=== PATIENT | female | born 1955 | race Two or more races ===

== ENCOUNTER 2023-04-10 06:56 | Day surgery (SDC) | payer OTHER ==
[2023-04-10] VITALS (7 sets, daily range): BP systolic 138–161; BP diastolic 71–87; PULSE 74–80; RESP 13–23; O2SAT 90–97
[~2023-04-10] VITALS: Ht 167.6 cm; Wt 86.2 kg
[~2023-04-10 06:56] MED LIST: ALBU108A14 IN; AMLO1TAB21 PO; ATOR40TA52 PO; BACL20TA PO; BUDE1AER4 IN; BUPR300T43 PO; CERTKIT SC; CHOL20007 PO; FOLI-119 PO; LORA-483 PO; LOSA50TA46 PO; LUBI24CA12 PO; MEMA1TAB3 PO; METH2.5T PO; METO25TA5 PO; ONDA-155 PO; OXY20CRT PO; PREG50CA PO; SULF500T57 PO
[2023-04-10] MEDS ORDERED: IODIXANOL 320MG/ML 100ML BTL IV ONE (09:17)
[2023-04-10] MEDS ORDERED: LIDOCAINE 2%HCL (LOCAL ANESTH.) INJ 20ML MDV ONE (09:17)
[2023-04-10] MEDS ORDERED: ANGIOMAX 250 MG VIAL IV ONE (09:19)
[2023-04-10] MEDS ORDERED: VERAPAMIL 2.5MG/ML INJ 2ML VIAL IV ONE (09:19)
[2023-04-10] MEDS ORDERED: HEPARIN SODIUM (PORCINE) 5000 UNITS/ML 1ML VIAL ONE ×2 (09:19→09:52)
[2023-04-10] MEDS ORDERED: fentaNYL CITRATE 100 MCG/2 ML VL ONE (09:19)
[2023-04-10] MEDS ORDERED: MIDAZOLAM HCL 2MG/2ML 2ml VIAL (1mg/ml) ONE (09:20)
[2023-04-10] MEDS ORDERED: SODIUM CHL 0.9% 0 ML ONE (09:20)
[2023-04-10] MEDS ORDERED: ONDANSETRON HCL 4 MG/2 ML VIAL ONE (09:22)
== END 2023-04-10 12:00 | disposition home or self-care (01) ==
LOC: CATH 06:56
PROVIDERS: ATTEND Internal Medicine Cardiovascular Disease
DX: I25.10 Atherosclerotic heart disease of native coronary artery without angina pectoris (principal); I10 Essential (primary) hypertension; J44.9 Chronic obstructive pulmonary disease, unspecified; E78.5 Hyperlipidemia, unspecified; M06.9 Rheumatoid arthritis, unspecified; I47.1 Supraventricular tachycardia; Z79.899 Other long term (current) drug therapy
CPT/HCPCS: 93458; 93571; C1725; C1769; C1894; J1644; J2250; J2405; J3010; J7030; Q9967; 99152; 99153

== ENCOUNTER 2023-10-18 08:22 | Inpatient (IN) | payer OTHER ==
[~2023-10-18] VITALS: Ht 167.6 cm; Wt 89.2 kg
[~2023-10-18 08:22] MED LIST changes: +ASPI1TAB20 PO; +ATOR20TA50 PO; -ATOR40TA52 PO; +BUSP15TA90 PO; +CAR3125T OR; -LORA-483 PO; +MAGN400C3 PO; -MEMA1TAB3 PO; -METO25TA5 PO; -OXY20CRT PO; +OXYC15TA48 PO; -PREG50CA PO
[2023-10-18] MEDS: TRANEXAMIC ACID 10 ML ONE ×2 (11:25→11:44)
[2023-10-18] MEDS ORDERED: LIDOCAINE 1% INJ PF 5ML AMP ONE (11:37)
[2023-10-18] MEDS: LIDOCAINE W/ EPINEPHRINE 1% 20ML VIAL ONE (11:44)
[2023-10-18] MEDS ORDERED: MIDAZOLAM HCL 2MG/2ML 2ml VIAL (1mg/ml) ONE (12:03)
[2023-10-18] MEDS ORDERED: fentaNYL CITRATE 100 MCG/2 ML VL ONE (12:03)
[2023-10-18] MEDS ORDERED: HYDROmorphone HCL 2 MG/ML VL/or syr ONE (12:03)
[2023-10-18] MEDS: ceFAZolin 2 GM/D5W100ml 100 ML IV ONE (12:04)
[2023-10-18] MEDS ORDERED: MIDAZOLAM HCL 2MG/2ML 2ml VIAL (1mg/ml) IV PRN (13:30)
[2023-10-18] MEDS ORDERED: MORPHINE SULFATE 4 MG/ML SYR/VIAL IV PRN (13:30)
[2023-10-18] MEDS ORDERED: LABETALOL HCL 5 MG/ML 4ML SYRINGE IV PRN (13:30)
[2023-10-18] MEDS ORDERED: ONDANSETRON HCL 4 MG/2 ML VIAL IV PRN (13:30)
[2023-10-18] MEDS ORDERED: HYDROmorphone HCL 2 MG/ML VL/or syr IV PRN (13:30)
[2023-10-18] MEDS ORDERED: ePHEDrine SULFATE 50 MG/ML AMP IV PRN (13:30)
[2023-10-18] MEDS ORDERED: DexAMETHasone SOD PHOS 10MG/1ML VIAL INJ ONE (13:32)
[2023-10-18] MEDS: SUCCINYLCHOLINE CHLORIDE 20 MG/ML 10ML VIAL IV ONE (14:01)
[2023-10-18] MEDS ORDERED: PROPOFOL 10 MG/ML 20 ML IV ONE (14:08)
[2023-10-18] MEDS ORDERED: ACETAMINOPHEN 325 MG TAB PO PRN (15:00)
[2023-10-18] MEDS: ceFAZolin 1GM/50ML 50 ML IV SCH (15:00)
[2023-10-18] MEDS ORDERED: NITROGLYCERIN 0.4 MG SL TAB SL PRN (15:00)
[2023-10-18] MEDS ORDERED: MORPHINE SULFATE INJ 2 MG/ml SYRG IV PRN (15:00)
[2023-10-18 15:34] VITALS: PULSE 83; RESP 15; O2SAT 99
[2023-10-18] MEDS: CYCLOBENZAPRINE HCL 10 MG TAB ONE (15:48)
[2023-10-18] MEDS: CYCLOBENZAPRINE HCL 10 MG TAB PO ONE (15:55)
[2023-10-18] MEDS: D5W/SOD CHLO 0.9% 1,000 ML IV SCH (17:59)
[2023-10-18 18:25] VITALS: BP 147/86; PULSE 82; RESP 17; RESP 18; TEMP 98; O2SAT 96
[2023-10-18 20:00] VITALS: PULSE 84
[2023-10-18 22:00] VITALS: BP 142/85; PULSE 79; RESP 17; TEMP 98; O2SAT 92
[2023-10-18] MEDS: DOCUSATE SOD 100 MG CAP PO SCH (22:11)
[2023-10-18] MEDS: CYCLOBENZAPRINE HCL 10 MG TAB PO SCH (22:11)
[2023-10-18] MEDS: MORPHINE SULFATE INJ 2 MG/ml SYRG IV PRN (23:20)
[2023-10-19] VITALS (7 sets, daily range): BP systolic 104–144; BP diastolic 58–79; PULSE 74–106; RESP 18–20; TEMP 97.5–99.3; O2SAT 93–99
[2023-10-19] MEDS: ONDANSETRON HCL 4 MG/2 ML VIAL IV PRN (05:49)
[2023-10-19] MEDS: HYDROcodone-ACET 10/325MG TAB PO PRN (08:52)
[2023-10-19] MEDS ORDERED: LUBI24CA6 PO (18:11)
[2023-10-19] MEDS ORDERED: LOSA100T58 PO (18:11)
[2023-10-19] MEDS ORDERED: AMLO1TAB22 PO (18:11)
[2023-10-20] VITALS (7 sets, daily range): BP systolic 124–158; BP diastolic 58–86; PULSE 79–139; RESP 18–19; TEMP 98.3–100.4; O2SAT 92–97
[2023-10-20] MEDS ORDERED: ALBUTEROL SULFATE IN PRN (17:00)
[2023-10-20] MEDS ORDERED: LUBIPROSTONE PO PRN (17:00)
[2023-10-20] MEDS: sulfaSALAzine 500 MG TAB PO SCH (21:33)
[2023-10-20] MEDS: CARVEDILOL 3.125 MG TAB PO SCH (21:34)
[2023-10-20] MEDS: busPIRone HCL 10 MG TAB PO SCH (21:34)
[2023-10-20] MEDS: ATORVASTATIN 20 MG TAB PO SCH (21:35)
[2023-10-20] MEDS: LUBIPROSTONE 24 MCG PO SCH (21:49)
[2023-10-21] VITALS (7 sets, daily range): BP systolic 103–125; BP diastolic 59–68; PULSE 76–102; RESP 15–20; TEMP 98.2–99.3; O2SAT 91–95
[2023-10-21] MEDS: FOLIC ACID 1 MG TAB PO SCH (08:54)
[2023-10-21] MEDS: amLODIPine BESYLATE 5 MG TAB PO SCH (08:57)
[2023-10-21] MEDS: LOSARTAN POTASSIUM 50 MG TAB PO SCH (08:58)
[2023-10-21] MEDS: ASPirin-EC 81 mg tab PO SCH (08:58)
[2023-10-21] MEDS: MAGNESIUM OXIDE 400 MG TAB PO SCH (08:58)
[2023-10-21] MEDS: CHOLECALCIFEROL (VITD3) 2,000 UNIT CAP/TAB PO SCH (08:59)
[2023-10-21] MEDS: BUDESONIDE IN SCH (09:06)
[2023-10-21] MEDS: BUPROPION HCL 300 MG PO SCH (09:06)
[2023-10-21] MEDS: FORMOTEROL FUM IN SCH (09:06)
[2023-10-21] MEDS: MORPHINE SULFATE INJ 2 MG/ml SYRG IV PRN (16:54)
[2023-10-21] MEDS: methylPREDNISolone SOD SUCC 40 MG/ML VL IV ONE (20:54)
[2023-10-21] MEDS: diphenhdrAMINE HCL 50 MG/1 ML VL IV PRN (20:56)
[2023-10-22 05:00] VITALS: BP 132/63; PULSE 83; RESP 18; TEMP 97.4; O2SAT 95
[2023-10-22] MEDS: FAMOTIDINE (10MG/ML) 2ML VL IV SCH (10:15)
[2023-10-22 13:00] VITALS: BP 118/65; PULSE 92; RESP 21; TEMP 97.9; O2SAT 96
[2023-10-22 15:00] VITALS: BP 119/79; PULSE 79; RESP 18; TEMP 98.6; O2SAT 98
== END 2023-10-22 17:00 | disposition home health service (06) | DRG 460 ==
LOC: SUR 08:22 → TELE 14:54 → TELE-WESTW 17:30
PROVIDERS: ADMIT Orthopaedic Surgery; ATTEND Internal Medicine
PROC: 01NB0ZZ Release Lumbar Nerve, Open Approach (ICD-10-PCS; 2023-10-18)
PROC: 00NY0ZZ Release Lumbar Spinal Cord, Open Approach (ICD-10-PCS; 2023-10-18)
PROC: 4A11X4G Monitoring of Peripheral Nervous Electrical Activity, Intraoperative, External Approach (ICD-10-PCS; 2023-10-18)
PROC: 0SG1071 Fusion of 2 or more Lumbar Vertebral Joints with Autologous Tissue Substitute, Posterior Approach, Posterior Column, Open Approach (ICD-10-PCS; principal; 2023-10-18 12:07)
DX: M48.062 Spinal stenosis, lumbar region with neurogenic claudication (principal); I47.10 Supraventricular tachycardia, unspecified; M54.16 Radiculopathy, lumbar region; I73.9 Peripheral vascular disease, unspecified; E78.5 Hyperlipidemia, unspecified; F41.1 Generalized anxiety disorder; I25.10 Atherosclerotic heart disease of native coronary artery without angina pectoris; M06.9 Rheumatoid arthritis, unspecified; I10 Essential (primary) hypertension; Z79.82 Long term (current) use of aspirin; Z79.899 Other long term (current) drug therapy; Z79.891 Long term (current) use of opiate analgesic; Z98.1 Arthrodesis status; Z82.49 Family history of ischemic heart disease and other diseases of the circulatory system; Z88.0 Allergy status to penicillin
CPT/HCPCS: 72100; 76000; 86850; 86900; 86901; 97110; 97116; 97163; 97530; G0378; J0330; J1100; J2250; J2405; J2704; J3490; J7042

== ENCOUNTER 2025-03-17 06:00 | Inpatient (IN) | payer OTHER ==
[~2025-03-17] VITALS: Ht 167.6 cm; Wt 90.5 kg
[~2025-03-17 06:00] MED LIST changes: -BUDE1AER4 IN; -CAR3125T OR; +CARV6.2551 PO; -CERTKIT SC; +CYAN-17 PO; +ETAN50IN10 SC; -LOSA50TA46 PO; -LUBI24CA12 PO; +LUBI24CA7 PO; +MONT10TA23 PO; -ONDA-155 PO
[2025-03-17] MEDS: ACETAMINOPHEN IV 100 ML IV ONE (06:59)
[2025-03-17] MEDS: GABAPENTIN 300 MG CAP ONE (06:59)
[2025-03-17] MEDS: LIDOCAINE W/ EPINEPHRINE 1% 20ML VIAL ONE (07:02)
[2025-03-17] MEDS: TRANEXAMIC ACID 20 ML ONE (07:02)
[2025-03-17] MEDS: LIDOCAINE 4MG/ML IV SOLN 500 ML IV ONE (07:09)
[2025-03-17] MEDS: MAGNESIUM SULFATE 1GM/100ML 100 ML IV ONE (07:09)
[2025-03-17] MEDS: ACETAMINOPHEN IV 1000 MG/100ML (10MG/ML) IV ONE (07:10)
[2025-03-17] MEDS: GABAPENTIN 300 MG CAP PO ONE (07:10)
[2025-03-17] MEDS ORDERED: GLYCOPYRROLATE 0.2 MG/ML 1ML VIAL ONE (07:11)
[2025-03-17] MEDS ORDERED: ROCURONIUM 10MG/ML 10ML VIAL IV ONE (07:11)
[2025-03-17] MEDS ORDERED: LIDOCAINE 2%HCL (LOCAL ANESTH.) INJ 20ML MDV ONE (07:11)
[2025-03-17] MEDS ORDERED: ONDANSETRON HCL 4 MG/2 ML VIAL ONE (07:11)
[2025-03-17] MEDS ORDERED: PROPOFOL 10 MG/ML 20 ML IV ONE ×2 (07:11→09:09)
[2025-03-17] MEDS ORDERED: fentaNYL CITRATE 100 MCG/2 ML VL ONE (07:17)
[2025-03-17] MEDS ORDERED: KETAMINE 50mg/ML 1ml syringe ONE (07:17)
--- NOTE | 2025-03-17 07:29 | DVHHP2 ---
History Allergies: Coded Allergies: Penicillins (Verified Allergy, Unknown, 10/18/23) Uncoded Allergies: PCN (Allergy, Unknown, VOMITING, 04/09/23) Chief Complaint: Cervical stenosis, neck pain Present Illness(Onset/Duration Patient is here for elective cervical spine surgery see 4-7 anterior cervical diskectomy and fusion. Patient has had neck pain shoulder pain headaches for many years. Her past PCP told her that her neck was fusing. She has a decreased range of motion she is unable to turn her head left to right and up and down very limited. 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 She has been dropping items she is not able to drive she is complaining of headaches and dizziness . The risks/benefits/alternatives of surgery were explained to the patient in detail including but not limited to , stroke, paralysis, myocardial infarction, bleeding, infection, complications of anesthesia (dry mouth, sore throat, dental damage, respiratory depression, blindness), postoperative infection, incomplete relief of symptoms, recurrence of symptoms, damage to blood vessels, nerves and tendons, pulmonary embolism and possible need for repeat surgery in the future. Pain, damage to surrounding soft tissue structures, need for reoperation or future surgery, persistent pain/disability/deformity, bone graft collapse or extrusion of interbody device, instrumentation failure, need for instrumentation removal, dural tear, temporary or permanent nerve root damage, deep vein thrombosis, pulmonary embolism, were described to the patient in detail and the patient wishes to proceed. No guarantee of surgical outcome/improvement was implied. All of the questions were answered thoroughly and consents were obtained. Call with questions Giselle Kunz [facility] Orthopaedic Spine Surgery nurse practitioner For Dr Eusebia Matta Patient was examined, chart reviewed, labs evaluated, and diagnostic studies and findings analyzed. Case was discussed with Dr. Srikanth Matta who formulated the plan of care. This medical document was created using an electronic medical record system with Chooos dictation system. Although this document has been carefully reviewed, there might still be some phonetic and typographical errors. These areas are purely typographical due to imperfections of the software programs, and do not reflect any compromise in the patient's medical care. Noncontributory to this case Exam Exam General Appearance: None, Normal, Obese HEENT: Other (Limited range of motion through all planes cervical) Neck: Limited Range of Motion Respiratory: No Accessory Muscle Use, None, No Respiratory Distress Cardiovascular: Other (No complaints of chest pain skin is pink warm and dry) Gastrointestinal: Other (No complaints of nausea vomiting or diarrhea) Extremities: Normal capillary refill, Normal inspection, Non-tender, Other (Limited range of motion lifting arms above head patient stops at shoulder level) Neurologic: Alert, Motor Weakness (Bilateral hands) Cerebellar Function: Normal MAHNAZ KUNZ NP Mar 17, 2025 07:29
[2025-03-17] MEDS ORDERED: ceFAZolin 1GM VL ONE (07:51)
[2025-03-17] MEDS ORDERED: SODIUM CHLORIDE LOCK 10 ML ONE (07:52)
[2025-03-17] MEDS ORDERED: SUGAMMADEX 200mg/2ml Vial (100MG/ML) IV ONE (09:30)
[2025-03-17] MEDS ORDERED: NITROGLYCERIN 0.4 MG SL TAB SL PRN (09:45)
[2025-03-17] MEDS ORDERED: ONDANSETRON HCL 4 MG/2 ML VIAL IV PRN ×2 (09:45→10:15)
[2025-03-17] MEDS ORDERED: MORPHINE SULFATE INJ 2 MG/ml SYRG IV PRN ×2 (09:45)
[2025-03-17] MEDS ORDERED: ALBUTEROL SULFATE IN PRN (09:45)
[2025-03-17] MEDS ORDERED: ACETAMINOPHEN 325 MG TAB PO PRN (09:45)
[2025-03-17 09:50] VITALS: PULSE 77; RESP 14; O2SAT 100
[2025-03-17] MEDS ORDERED: PATIENTS OWN MEDICATION (Carvedilol 6.25 MG) PO SCH (10:00)
[2025-03-17] MEDS ORDERED: CYANOCOBALAMIN 1000 MCG PO SCH (10:00)
[2025-03-17] MEDS ORDERED: PATIENTS OWN MEDICATION (Folic Acid 1 TAB) PO SCH (10:00)
[2025-03-17] MEDS ORDERED: MAGNESIUM OXIDE PO SCH (10:00)
[2025-03-17] MEDS ORDERED: NALOXONE HCL 0.4 MG/ML VIAL IV PRN (10:15)
[2025-03-17] MEDS ORDERED: FLUMAZENIL 0.1 MG/ML INJ 10ML MDV IV PRN (10:15)
[2025-03-17] MEDS ORDERED: hydrALAZINE HCL 20 MG/ML VL IV PRN (10:15)
[2025-03-17] MEDS ORDERED: fentaNYL CITRATE 100 MCG/2 ML VL IV PRN (10:15)
[2025-03-17] MEDS ORDERED: HYDROmorphone HCL 2 MG/ML VL/or syr IV PRN (10:15)
--- NOTE | 2025-03-17 11:19 | DVH ---
C-ARM FLUOROSCOPY: PROCEDURE: c4 cervical dissectomy FLUOROSCOPY TIME: 45.6 sec DAP: 5.56 mgy FINDINGS: Spot intraoperative C arm radiographs demonstrating C4 cervical discectomy. IMPRESSION: Please refer to surgical report for detailed findings.
--- NOTE | 2025-03-17 11:19 | DVH ---
C-ARM FLUOROSCOPY: PROCEDURE: c4 cervical dissectomy FLUOROSCOPY TIME: 45.6 sec DAP: 5.56 mgy FINDINGS: Spot intraoperative C arm radiographs demonstrating C4 cervical discectomy. IMPRESSION: Please refer to surgical report for detailed findings.
[2025-03-17 11:45] VITALS: O2SAT 96
[2025-03-17] MEDS: DOCUSATE SOD 100 MG CAP PO SCH (13:03)
[2025-03-17] MEDS: BUPROPION HYDROCHLORIDE PO SCH (13:07)
[2025-03-17] MEDS ORDERED: BUSPIRONE HCL 15 MG PO SCH (14:00)
[2025-03-17] MEDS: ceFAZolin 1GM/50ML 50 ML IV SCH (16:42)
[2025-03-17] MEDS: CYCLOBENZAPRINE HCL 10 MG TAB PO SCH (16:42)
[2025-03-17] MEDS: D5W/SOD CHLO 0.9% 1,000 ML IV SCH (16:42)
[2025-03-17] MEDS: HYDROcodone-ACET 10/325MG TAB PO PRN (18:50)
[2025-03-17 20:00] VITALS: RESP 18
[2025-03-17 21:00] VITALS: BP 148/88; PULSE 83; RESP 18; TEMP 97.5; O2SAT 98
[2025-03-17] MEDS: CARVEDILOL 3.125 MG TAB PO SCH (22:14)
[2025-03-18] VITALS (7 sets, daily range): BP systolic 106–160; BP diastolic 65–86; PULSE 70–91; RESP 15–19; TEMP 97.5–98.4; O2SAT 92–100
[2025-03-18] MEDS ORDERED: AMLODIPINE BESYLATE PO SCH (07:00)
[2025-03-18] MEDS: MAGNESIUM OXIDE 400 MG TAB PO SCH (09:19)
[2025-03-18] MEDS: CYANOCOBALAMIN 500 MCG TAB PO SCH (09:19)
[2025-03-18] MEDS: FOLIC ACID 1 MG TAB PO SCH (09:19)
--- NOTE | 2025-03-18 09:38 | DVHPN2 ---
Progress Note - Surgical Date Seen: Mar 18, 2025 Post op day Post op day: 1 Subjective Patient reports: No new complaints, Feels better Review of Systems: HEENT:Abnormal (decreased range of motion she is unable to turn her head left to right and up and down very limited. 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 She has been dropping items she is not able to drive she is complaining of headaches and dizziness), CVS:Normal, RESPIRATORY:Normal, GI:Normal, :Normal, MSK:Abnormal (Limited range of motion bilateral upper extremities deltoids), NEURO:Abnormal (Weak superintendent compressor stations bilaterally 3/5) Objective Vital signs Vital Sign Date Time Temp Pulse Resp B/P (MAP) Pulse Ox O2 Delivery O2 Flow Rate FiO2 03/18/25 09:19 153/81 03/18/25 09:18 73 03/18/25 09:00 97.8 15 98 97.8 03/17/25 20:00 Room Air* 0 21 Total Intake and Output 03/17/25 03/17/25 03/18/25 15:00 23:00 07:00 Intake Total 100 ml 325 ml 475 ml Output Total 165 ml 20 ml Balance -65 ml 305 ml 475 ml Medications Current Medications Medications Dose Ordered Sig/Dominique Route Start Time Stop Time Status Last Admin Dose Admin Dextrose/Sodium Chloride 1,000 ml @ 100 mls/hr Q10H IV 03/17/25 09:45 03/17/25 16:42 100 MLS/HR Ondansetron HCl 4 mg Q4HP PRN IV 03/17/25 09:45 Acetaminophen 650 mg Q6HP PRN PO 03/17/25 09:45 Acetaminophen/ Hydrocodone Bitart 1 tab Q6HP PRN PO 03/17/25 09:45 03/18/25 05:16 1 TAB Morphine Sulfate 1 mg Q4HP PRN IV 03/17/25 09:45 Cyclobenzaprine HCl 10 mg TID PO 03/17/25 14:00 03/18/25 05:14 10 MG Docusate Sodium 100 mg BID PO 03/17/25 10:00 03/18/25 09:20 100 MG Cefazolin Sodium 50 ml @ 100 mls/hr Q8HR IV 03/17/25 14:00 03/19/25 06:29 03/18/25 05:14 100 MLS/HR Nitroglycerin 0.4 mg Q5MINP PRN SL 03/17/25 09:45 Morphine Sulfate 2 mg Q30M PRN IV 03/17/25 09:45 Sulfasalazine 500 mg BID PO 03/17/25 10:00 03/18/25 09:18 500 MG Patient Own Medication 2 puff QID PRN IN 03/17/25 09:45 Patient Own Medication 2 tab QAM PO 03/18/25 07:00 UNV Patient Own Medication 1 tab DAILY PO 03/17/25 10:00 03/18/25 09:20 1 TAB Patient Own Medication 15 mg TID PO 03/17/25 14:00 UNV Patient Own Medication 6.25 mg BID PO 03/17/25 10:00 UNV Patient Own Medication 1,000 mcg DAILY PO 03/17/25 10:00 UNV Patient Own Medication 1 tab DAILY PO 03/17/25 10:00 UNV Patient Own Medication 400 mg DAILY PO 03/17/25 10:00 UNV Oxycodone HCl 10 mg ONCE PRN PO 03/17/25 10:15 Amlodipine Besylate 5 mg DAILY PO 03/18/25 10:00 03/18/25 09:19 5 MG Buspirone HCl 15 mg TID PO 03/17/25 14:00 03/18/25 05:14 15 MG Carvedilol 6.25 mg BID PO 03/17/25 22:00 03/18/25 09:18 6.25 MG Cyanocobalamin 1,000 mcg DAILY PO 03/18/25 10:00 03/18/25 09:19 1,000 MCG Folic Acid 1 mg DAILY PO 03/18/25 10:00 03/18/25 09:19 1 MG Magnesium Oxide 400 mg DAILY PO 03/18/25 10:00 03/18/25 09:19 400 MG Examination: GENERAL:Normal, NECK:Abnormal ([place] J collar in place), CVS:No rmal, ABDOMEN:Normal, SKIN:Normal (Left anterior surgical site closed with jaret drain site in place drain output 20 mL since surgery-we will discontinue drain today) Problem List/Assessment/Plan Problems: (1) Acute post-operative pain (2) Cervical stenosis of spinal canal (3) Muscle spasms of neck Assessment and Plan Disposition: Plan to discharge home Events of the day Drain was discontinued 50 mL output In the past 24 hours patient up ambulating in the hallway Patient does not use any morphine for breakthrough pain, she has having good results with her oral analgesia and muscle relaxers Patient is progress well is cleared to discharge -Follow up appointment: with Dr Matta in two weeks at preset appointment [id number] [place] [address] Patient needs to be in a [place] J collar for three months while mobilizing -Pain: - IV pain meds post op day 1, with PO supplementation, goal is to progress weaning off IV medications and control pain with PO only. morphine 1mg q 4 hours (PAIN 7-10) - P.O. analgesics:Tylenol 650MG (PAIN 1-3) [place] 10/325 mg (PAIN 4-6) - Muscle relaxers scheduled administration. This is a beneficial medications for the incisional pain as it is mostly related to muscle spasms. Flexeril 10 mg TID - Cepacol throat lozenges as needed for sore throat -Antibiotics Operative recommendations: -Postoperative dose:-Post operative antibiotics cefazolin 1 g IV piggyback every 8 hours x 48 hours total of 6 doses -DVT PPX: -Hold all chemical DVT/ blood thinners for 14 days postoperatively -use mechanical DVT PPX such as SCD's, ambulation -Activity: -Pending PT evaluation and patients progression -Sit at side of bed for meals -Goal: Ambulate independently and safely (may use assistive devices if needed) -Brace: - [place] collar for three months -Dressings New dressing applied today -Bowel management: -Colace 100mg bid -Diet: Tolerating diet -Incentive Spirometer: -10 x hour while awake, RN please educate and observe repeat demonstration, have IS at bedside POD #1 -X-rays: - none indicated at this time -Consults: -Physical Therapy evaluation, treatment recommendations, and discharge recommendations Call with questions Giselle Kunz ACNP- Orthopaedic Spine Surgery nurse practitioner For Dr Eusebia Matta Patient was examined, chart reviewed, labs evaluated, and diagnostic studies and findings analyzed. Case was discussed with Dr. Srikanth Matta who formulated the plan of care. This medical document was created using an electronic medical record system with Dragon computerized dictation system. Although this document has been carefully reviewed, there might still be some phonetic and typographical errors. These areas are purely typographical due to imperfections of the software programs, and do not reflect any compromise in the patient's medical care. Plan discussed with Plan discussed with: Patient, Other (Judy extension [phone]) Visit Coding Surgery Date of Service if different f: Mar 17, 2025 Billing Provider: MAHNAZ KUNZ NP Surgery Visit Codes: NOT BILLABLE MAHNAZ KUNZ NP Mar 18, 2025 09:37
[2025-03-18 10:04] LABS: Hepatitis B Surface Antigen Negative (Negative)
[2025-03-18 10:23] LABS: Hepatitis C Antibody Negative (Negative)
[2025-03-18] MEDS ORDERED: CYCL-611 PO (11:39)
[2025-03-18] MEDS ORDERED: HYDR-4798 PO (11:39)
[2025-03-18] MEDS ORDERED: DOCU-265 PO (11:39)
--- NOTE | 2025-03-18 11:59 | DVHDS2 ---
Discharge Summary Date of Admission Mar 17, 2025 at 09:34 Date of Discharge: Mar 18, 2025 Admitting Diagnosis Cervical Degenerative Disk Disease and Spinal Stenosis Causing incapacitating neck pain, radiculopathy and progressive neurologic deficit Wounds: Left anterior neck well approximated with jaret drain site with minimal drainage after removal patient tolerated well Labs/Diagnostic Data: Laboratory Results Test 03/17/25 14:26 Hepatitis B Surface Antigen Negative (Negative) Hepatitis C Antibody Negative (Negative) Brief Hx & Hospital Course: The patient arrived for a elective spine surgery with Dr. MATTA. Surgery went as planned with no complications. After a short stay in the PACU patient was admitted to the hospital for postoperative care and pain management over the course of 1 postoperative days the patient was able to tolerate a diet, ambulate independently, the pain has been managed with oral analgesics. The surgical site is well-approximated with sutures, some residual drainage continues from drain insertion sites after removal, however it is manageable with daily wound care and dressing changes. Some improvement to preoperative symptoms of extremities, strength and motion. There is new post operative pain that is localized to the surgical site. The patient will follow-up with Dr. Matta for wound check and suture check or staple removal. The patient should wear [place] J collar while mobilizing. You may shower and let the water run over your neck wound however you must pat it dry with sterile 4x4s gauze. Please do not use regular household towels. Keep your incision covered when you are out of your house or when you are wearing clothing that rub on your incision. He will also do not want to have a seatbelt rubbing on your incision. If you are at home and you have clothing that does not contact your incision you may leave it open to air. You may have some residual drainage from the drain site for the next 2-3 days which is normal it should be a very light pink or carlos color fluid. If it changes or becomes bright red please call 911. Operations or Procedures Procedure: Cervical 4 to 5 anterior cervical discectomy with Cervical 4-5 foraminotomies and facetectomies to decompression the spinal canal and Cervical 5 nerve roots Cervical 4-5 anterior cervical Fusion Cervical 4-5 anterior cervical instrumentation with Biomet freestanding cages Cervical 4-5 placement of allograft prosthetic device Microscope for micro dissection Condition at Discharge: Good Final Diagnosis/Problems List Postoperative pain status post cervical spinal surgery Discharge Disposition: Home Discharge Instruct/Medications Diet: Regular Diet comment: May resume your regular diet Activity: No Restrictions, As Tolerated Activity comment: Collar during mobilization Follow Up/Referral: See Dr. Khan on your follow up visit which has already been scheduled Call [phone] for a appointment, or to change or confirm your appoinment [id number] [facility], [address] [id number] Medications: Medications sent via Dr. Khan's EMR at [facility] New Medications: Cyclobenzaprine HCl (Cyclobenzaprine Hydrochlo) 10 Mg Tab 10 MG PO TID for 30 Days, #90 TAB Docusate Sodium (Docusate Sodium) 100 Mg Cap 100 MG PO BID for 30 Days, #30 CAP Continued Medications: Albuterol Sulfate (Proair Digihaler) 108 Mcg/Act Aer 2 PUFF IN QID PRN for SHORTNESS OF BREATH Amlodipine Besylate (Amlodipine Besylate) 2.5 Mg Tab 2 TAB PO QAM for HYPERTENSION Aspirin (Aspir-81) 81 Mg Tab 81 MG PO DAILY, TAB Atorvastatin Calcium (Atorvastatin Calcium) 20 Mg Tab 20 MG PO DAILY, TAB Baclofen (Baclofen) 20 Mg Tab 1 TAB PO TID PRN for FOR MUSCLE SPASM Bupropion HCl (Bupropion Hydrochloride X) 300 Mg Tab 1 TAB PO DAILY for DEPRESSION Buspirone HCl (Buspirone Hydrochloride) 15 Mg Tab 15 MG PO TID, TAB Carvedilol (Carvedilol) 6.25 Mg Tab 6.25 MG PO BID, TAB Cholecalciferol (Vitamin D3) 2,000 Unit Tab 1 TAB PO DAILY for SUPPLEMENT Cyanocobalamin (B12) 1,000 Mcg Cap 1000 MCG PO DAILY, CAP Etanercept (Enbrel Sureclick) 50 Mg/Ml Inj 50 MG SC QWEEKLY, INJ Folic Acid (Folic Acid) 1 Mg Tab 1 TAB PO DAILY for SUPPLEMENT Lubiprostone (Amitiza) 24 Mcg Cap 24 MCG PO BIDP, CAP Magnesium Oxide (Mg Supplement (Magnesium) 400 Mg Cap 400 MG PO DAILY, CAP Methotrexate (Methotrexate) 2.5 Mg Tab 8 TAB PO QWEEKLY for RHEUMATOID ARTHRITIS Montelukast Sodium (Singulair) 10 Mg Tab 10 MG PO DAILY, TAB Oxycodone Hcl (Roxicodone) 15 Mg Tab 15 MG PO TID, TAB Sulfasalazine (Sulfasalazine) 500 Mg Tab 1 TAB PO BID for ULCERATIVE COLITIS Scheduled Amlodipine Besylate (Amlodipine Besylate), 2 TAB PO QAM, (Reported) Aspirin (Aspir-81), 81 MG PO DAILY, (Reported) Atorvastatin Calcium (Atorvastatin Calcium), 20 MG PO DAILY, (Reported) Bupropion HCl (Bupropion Hydrochloride X), 1 TAB PO DAILY, (Reported) Buspirone HCl (Buspirone Hydrochloride), 15 MG PO TID, (Reported) Carvedilol (Carvedilol), 6.25 MG PO BID, (Reported) Cholecalciferol (Vitamin D3), 1 TAB PO DAILY, (Reported) Cyanocobalamin (B12), 1,000 MCG PO DAILY, (Reported) Cyclobenzaprine HCl (Cyclobenzaprine Hydrochlo), 10 MG PO TID Docusate Sodium (Docusate Sodium), 100 MG PO BID Etanercept (Enbrel Sureclick), 50 MG SC QWEEKLY, (Reported) Folic Acid (Folic Acid), 1 TAB PO DAILY, (Reported) Lubiprostone (Amitiza), 24 MCG PO BIDP, (Reported) Magnesium Oxide (Mg Supplement (Magnesium), 400 MG PO DAILY, (Reported) Methotrexate (Methotrexate), 8 TAB PO QWEEKLY, (Reported) Montelukast Sodium (Singulair), 10 MG PO DAILY, (Reported) Oxycodone Hcl (Roxicodone), 15 MG PO TID, (Reported) Sulfasalazine (Sulfasalazine), 1 TAB PO BID, (Reported) Scheduled PRN Albuterol Sulfate (Proair Digihaler), 2 PUFF IN QID PRN for SHORTNESS OF BREATH, (Reported) Baclofen (Baclofen), 1 TAB PO TID PRN for FOR MUSCLE SPASM, (Reported) Discontinued Medications Budesonide-Formoterol Fumarate (Budesonide/Formoterol Fum 160-4.5 Mcg/Act), 2 PUFF IN DAILY, (Reported) Discontinued Reason: Prescription changed Carvedilol (Coreg), 3.125 MG OR BID, (Reported) Discontinued Reason: Prescription changed Discharge Statement: "Patient was advised to return to the ER or call 911 if any headaches, dizziness, shortness of breath, chest pain, abdominal pain, bleeding, fevers, or worsening of medical condition. Patient was counseled about treatment plan, medications, possible side effects, patientverbalized understanding. All questions were answered to the best of my ability. This discharge took greater then 30 minutes in planning, reviewing documentation, counseling the patient, and discussing with other team members." ASSESSMENT ASSESSMENT Assessment Postoperative pain status post cervical spinal surgery MAHNAZ OLIVARES NP Mar 18, 2025 11:59
--- NOTE | 2025-03-18 13:09 | DVHOP2 ---
Operative Report - 2 Report Details Date: 03/18/25 Preop Diagnosis: cervical spinal stenosis Postop Diagnosis: Postoperative pain status post cervical spinal surgery Surgeon: Srikanth Matta MD Assembler Sandal Parts: Mandie Kunz NP Anesthesiologist: general Anesthesia: General Consent: The patient was informed of the risks and benefits of the procedure. These include but are not limited to complications of anesthesia, postoperative infection, incomplete relief of symptoms, recurrence of symptoms, damage to blood vessels, nerves and tendons, deep venous thrombosis, pulmonary embolism and possible need for repeat surgery in the future. Name of Procedure Performed see detailed note Procedure Details Procedure Details: Pre Op Diagnosis: Cervical Degenerative Disk Disease and Spinal Stenosis Causing incapacitating neck pain, radiculopathy and progressive neurologic deficit Post Op Diagnosis: Cervical Degenerative Disk Disease and Spinal Stenosis Causing incapacitating neck pain, radiculopathy and progressive neurologic deficit Procedure: Cervical 4 to 5 anterior cervical discectomy with Cervical 4-5 foraminotomies and facetectomies to decompression the spinal canal and Cervical 5 nerve roots Cervical 4-5 anterior cervical Fusion Cervical 4-5 anterior cervical instrumentation with Biomet freestanding cages Cervical 4-5 placement of allograft prosthetic device Microscope for micro dissection Surgeon: Srikanth aMtta MD Anesthesia: General Assist: Mandie Kunz NP Fluids and EBL: see anesthesia note Procedure Note: The patient was seen in the Pre-anesthesia Care Unit and the site of the incision was initialed by me with a felt tipped marker. All questions by the patient were answered to the satisfaction of the patient and the chart was reviewed. The patient was taken to the operating room and placed supine on the [facility] Flat top table. General anesthesia was induced. Neuromonitoring leads were placed. A rolled towel was placed between the shoulder blades to hyperextend out the chest which will allow better exposure of the cervical spine. Halter traction to 10 pounds was placed. The arms were padded and adducted to the patients side making sure all pulses in the hands were present. Tape traction was undertaken on the shoulders to give us better radiographic exposure of the distal cervical spine. A gel-pad was placed under the occiput and 5 degrees of extension was placed on the neck without adverse effects to the patient. The anterior neck was prepped and draped. Pre-operative antibiotics were given 30 minutes prior to the start of the procedure. A c-arm fluoroscope was used to christoph out the incision site. At this time, a time out was taken per usual protocol. Next an inscison was made through the skin with a 15 blade scalpel through the subcutaneous tissue down to the platysma. Self-retainers were placed. The platysma was incised along the longitudinal border with a Metzenbaum scissors. Blunt dissection was made through the deep cervical and pre-tracheal fascia taking care to protect the carotid sheath laterally and the Trachea/esophagus medially. The dissection was carried down to the prevertebral fascia. Any crossing vessels were ligated using a vascular clip or coagulated with a bovie. An esophageal retractor was next used to retract the trachea/esophagus and a bent [address] through the anterior annulus of the cervical disk and a lateral C-arm fluoroscopic image was taken to confirm that we were at the correct level. Next, bovie electrocautery was used to expose the bones of cervical 4,5 and bipolar electrocautery was used to lift up the Longus Colli and Capitus muscles. Black-Belt Self Retainers were used to retract the longus colli and capitus muscles bilaterally as well as the trachea/esophagus to the right and the carotid sheath to the left. Smooth thin Black-Belt retractors were placed proximally and distally and a needle was placed again in the anterior annulus of the disk and an image taken to confirm the correct level. At this point, the microscope was wheeled in and an 11 blade scalpel incised the anterior annulus of the cervical 4/5 disk. Next, straight and curved curettes removed the remainder of the disks all the way down to the posterior longitudinal ligament. Carefully, a Kerison number one rongeur incised the posterior longitudinal ligament at the lateral end of the cervical 4/5 disk and using a micro, blunt tip nerve hook to separate the posterior longitudinal ligament from the dura, alternating 1 mm and 2 mm Kerison rongeurs removed the posterior longitudinal ligament. Next, Kerison 1mm and 2 mm rongeurs were alternated to get under the uncinate processes and undercut them to perform foraminotomies and facetectomies at the [Seven] levels to decompress the central canal and cervical 5 and 6 nerve roots. Next the microscope was wheeled away and the c-arm fluoroscope was wheeled into the field and a lateral image was obtained. Increasing size graft trials were used starting at a 5 mm thick size until the proper tension in the disk space and height religious obtained. We then placed final free standing cages at cervical 4/5 Satisfactory placement was confirmed in the AP and lateral views using a C-arm fluoroscope. Copious irrigation of the wound with sterile saline and all bleeding was controlled before closure initiated. At this point, a 10 [place] Islander round Cesar Drain was place deep to the Platysma muscle and the Platysma was approximated with one interrupted 0-Vicryl suture. The subcutaneous tissue was closed with interrupted 2-0 vicryl sutures and the skin was closed with jaret. Sterile dressings were placed and a cervical collar placed, the patient extubated, transferred to the stretcher and taken to the Recovery Room in unremarkable condition. Other Notes:[id number] Condition Stable Disposition Still a Patient SRIKANTH MATTA MD Mar 18, 2025 13:09
[2025-03-18] MEDS: THROAT LOZENGES(CEPASTAT) MT PRN (14:25)
== END 2025-03-18 17:35 | disposition home health service (06) | DRG 473 ==
LOC: SUR 06:00 → OVERFLOW 09:34 → TELE-EAST 11:19
PROVIDERS: ADMIT Orthopaedic Surgery; ATTEND Orthopaedic Surgery
PROC: 0RG10A0 Fusion of Cervical Vertebral Joint with Interbody Fusion Device, Anterior Approach, Anterior Column, Open Approach (ICD-10-PCS; principal; 2025-03-18)
PROC: 0RB30ZZ Excision of Cervical Vertebral Disc, Open Approach (ICD-10-PCS; 2025-03-18)
PROC: 01N10ZZ Release Cervical Nerve, Open Approach (ICD-10-PCS; 2025-03-18)
PROC: 00NW0ZZ Release Cervical Spinal Cord, Open Approach (ICD-10-PCS; 2025-03-18)
PROC: 4A11X4G Monitoring of Peripheral Nervous Electrical Activity, Intraoperative, External Approach (ICD-10-PCS; 2025-03-18)
DX: M48.02 Spinal stenosis, cervical region (principal); G89.18 Other acute postprocedural pain; Z88.0 Allergy status to penicillin; Z79.899 Other long term (current) drug therapy
CPT/HCPCS: 36415; 72040; 76000; 86803; 86850; 86900; 86901; 87340; 97116; 97163; G0378; J0131; J0690; J1100; J1956; J2405; J2704

== ENCOUNTER 2025-04-29 20:35 | Emergency (ER) | payer OTHER ==
[~2025-04-29] VITALS: Ht 167.6 cm; Wt 93.0 kg
[~2025-04-29 20:35] MED LIST changes: +CYCL-611 PO; +DOCU-265 PO
[2025-04-29] MEDS: ACETAMINOPHEN 325 MG TAB PO ONE (21:45)
[2025-04-29 22:06] LABS: Hematocrit 41.2 % (36.0-46.0); Hemoglobin 14.3 g/dL (12.2-16.2)
[2025-04-29 22:08] LABS: Chloride 105 mmol/L (98-107); Mean Corpuscular Hemoglobin 36.4 pg (28.0-32.0); Mean Corpuscular Volume 105.2 fL (80.0-100.0); Nucleated Red Blood Cells % 0.1 %; Potassium 4.0 mmol/L (3.5-5.1); Sodium 139 mmol/L (136-145)
[2025-04-29 22:09] LABS: Anion Gap 10 (5-15); Calcium 9.5 mg/dL (8.7-10.4); Carbon Dioxide 24 mmol/L (20-31)
[2025-04-29 22:14] LABS: BUN/Creatinine Ratio 20.3 (10.0-20.0); Blood Urea Nitrogen 15 mg/dL (9-23); Glucose 106 mg/dL (74-106)
--- NOTE | 2025-04-29 22:38 | DVH ---
CHEST RADIOGRAPH Indication: cp Technique: Single frontal view of the chest was obtained Comparison: None FINDINGS: Lines and Tubes: None Lungs: No focal consolidation. mild pulmonary vascular congestion. Pleura: No effusion. No pneumothorax. Cardiomediastinal contours: Unremarkable Bones: No acute osseous abnormality. IMPRESSION: 1. No focal consolidation. mild pulmonary vascular congestion.
--- NOTE | 2025-04-29 22:38 | ECG ---
[facility] Test Date: 2025-04-29 Test Time: 20:45:08 Pat Name: FARNAZ MUNSON Department: ED Room: Gender: F Off Premise Service Representative: MALIA : 1955 Requested By: EMERGENCY EMERGENCY Order Number: [id number] Reading MD: Measurements Intervals [place] Rate: 91 P: 49 LA: 158 QRS: 96 QRSD: 95 T: 26 QT: 352 QTc: 434 Interpretive Statements Sinus rhythm Probable right ventricular hypertrophy Abnormal inferior Q waves Please click the below link to view image of tracing.
--- NOTE | 2025-04-30 00:13 | ED.PDOC ---
History of Present Illness HPI Comments 69-year-old female who is brought in by ambulance for chief complaint of left, with the associated shortness of breath. This is on onset of symptoms at around 8:30 p.m., this evening after sneezing. Significant history of rheumatoid arthritis patient denies having any lightheadedness, dizziness, chest pain, or further associated symptoms. REVIEW OF SYSTEMS: General: No fever, no chills, or fatigue HEENT: No sore throat, no earache, no congestion, no neck pain. Cardiac: No chest pain. No palpitations. Lungs: No shortness of breath, no cough. GI: No nausea, no vomiting, no diarrhea, no constipation, no abdominal pain : No dysuria, frequency, or urgency. No hematuria. Musculoskeletal: No joint pain , no joint swelling, no extremity edema. Skin: No rash, no itching. Neuro: No headache, no dizziness, no weakness PHYSICAL EXAM: General: Awake, alert and oriented. No acute distress. Skin: Skin in warm, dry and intact. Appropriate color for ethnicity. HEENT: The head is normocephalic and atraumatic. Conjunctivae are clear without exudates or hemorrhage. Sclera is non-icteric. EOM are intact. No signs of nystagmus. Eyelids are normal in appearance without swelling or lesions. Oral mucosa is pink and moist Neck: The neck is supple with normal range of motion. No JVD. Cardiac: Heart rate and rhythm are normal. No murmurs, gallops, or rubs are auscultated. Respiratory: No signs of respiratory distress. Lung sounds are clear in all lobes bilaterally without rales, rhonchi, or wheezes. Positive left chest wall tenderness to palpation. Abdominal: Abdomen is soft, non-tender without distention, guarding or rigidity. Bowel sounds are present and normoactive in all four quadrants. Extremities: Upper and lower extremities are atraumatic in appearance without deformity or edema. Neurological: The patient is awake, alert and oriented to person, place, and time with normal speech. Speech is clear. There is no facial asymmetry. Psychiatric: Appropriate mood and affect. Good judgement and insight. Chief Complaint: Chest Pain Time Seen by MD: 21:33 Allergies: Coded Allergies: Penicillins (Verified Allergy, Unknown, 10/18/23) Uncoded Allergies: PCN (Allergy, Unknown, VOMITING, 04/09/23) Home Meds Active Scripts Acetaminophen (Acetaminophen Er) 650 Mg Tab, 650 MG PO TIDPRN PRN for 5 Days, #15 TAB Prov:YOAV FLORES MD 04/30/25 Docusate Sodium (Docusate Sodium) 100 Mg Cap, 100 MG PO BID for 30 Days, #30 CAP Prov:MAHNAZ OLIVARES NP 03/18/25 Cyclobenzaprine HCl (Cyclobenzaprine Hydrochlo) 10 Mg Tab, 10 MG PO TID for 30 Days, #90 TAB Prov:MAHNAZ OLIVARES NP 03/18/25 Reported Medications Etanercept (Enbrel Sureclick) 50 Mg/Ml Inj, 50 MG SC QWEEKLY, INJ 03/13/25 Cyanocobalamin (B12) 1,000 Mcg Cap, 1000 MCG PO DAILY, CAP 03/13/25 Carvedilol (Carvedilol) 6.25 Mg Tab, 6.25 MG PO BID, TAB 03/13/25 Montelukast Sodium (Singulair) 10 Mg Tab, 10 MG PO DAILY, TAB 03/13/25 Lubiprostone (Amitiza) 24 Mcg Cap, 24 MCG PO BIDP, CAP 10/19/23 Aspirin (Aspir-81) 81 Mg Tab, 81 MG PO DAILY, TAB 10/12/23 Buspirone HCl (Buspirone Hydrochloride) 15 Mg Tab, 15 MG PO TID, TAB 10/12/23 Magnesium Oxide (Mg Supplement (MAGNESIUM) 400 Mg Cap, 400 MG PO DAILY, CAP 10/12/23 Atorvastatin Calcium (ATORVASTATIN CALCIUM) 20 Mg Tab, 20 MG PO DAILY, TAB 10/12/23 Oxycodone Hcl (Roxicodone) 15 Mg Tab, 15 MG PO TID, TAB 10/12/23 Cholecalciferol (VITAMIN D3) 2,000 Unit Tab, 1 TAB PO DAILY for SUPPLEMENT 04/09/23 Methotrexate (Methotrexate) 2.5 Mg Tab, 8 TAB PO QWEEKLY for RHEUMATOID ARTHRITIS 04/09/23 Folic Acid (Folic Acid) 1 Mg Tab, 1 TAB PO DAILY for SUPPLEMENT 04/09/23 Baclofen (Baclofen) 20 Mg Tab, 1 TAB PO TID PRN for FOR MUSCLE SPASM 04/09/23 Amlodipine Besylate (Amlodipine Besylate) 2.5 Mg Tab, 2 TAB PO QAM for HYP ERTENSION 04/09/23 Bupropion HCl (Bupropion Hydrochloride X) 300 Mg Tab, 1 TAB PO DAILY for DEPRESSION 04/09/23 Sulfasalazine (Sulfasalazine) 500 Mg Tab, 1 TAB PO BID for ULCERATIVE COLITIS 04/09/23 Albuterol Sulfate (Proair Digihaler) 108 Mcg/Act Aer, 2 PUFF IN QID PRN for SHORTNESS OF BREATH 04/09/23 Mode of Arrival: EMS Physical Exam General Appearance: Other HEENT: Other Neck: Other Respiratory: Other Cardiovascular: Other Breast Exam: Other Gastrointestinal: Other Genitalia: Other Pelvic: Other Rectal: Other Extremities: Other Neurologic: Other Cerebellar Function: Other Reflexes: Other Skin: Other Lymphatic: Other Was a procedure done? Was a procedure done?: No EKG EKG : Comments No STEMI Differential Dx Considerations may include: Differential diagnoses considered include acute ischemic coronary syndrome, aortic dissection, cardiac tamponade, mediastinitis, pulmonary embolus, pneumothorax, tension pneumothorax, esophageal rupture, coronary artery vasospasm, myocarditis, pericarditis, pneumonia, pulmonary edema, esophageal tear, pancreatitis, aortic stenosis, dilated cardiomyopathy, hypertrophic cardiomyopathy, mitral valve prolapse, malignancy, pleuritis, pneumomediastinum, primary pulmonary hypertension, cholecystitis, esophageal spasm, esophagus, gastritis, GERD, peptic ulcer disease, costochondritis, fibromyalgia, rib fracture, herpes zoster, radicular syndromes, thoracic outlet syndrome, somatization. X-Ray, Labs, Meds, VS Vital Signs Date Time Temp Pulse Resp B/P (MAP) Pulse Ox O2 Delivery O2 Flow Rate FiO2 04/30/25 01:18 Room Air* 0 21 04/30/25 01:15 98.2 75 18 141/79 (99) 97 98.2 04/29/25 22:36 89 16 94 Room Air 04/29/25 22:36 98.2 89 16 119/67 (84) 94 98.2 04/29/25 20:47 97.7 98 26 171/97 98 97.7 04/29/25 20:45 91 Lab Test 04/29/25 22:25 04/29/25 21:44 Range/Units Troponin I High Sensitivity < 3 L < 3 L </=34 ng/L White Blood Count 7.1 4.4-10.8 10^3/uL Red Blood Count 3.91 L 4.0-5.20 10^6/uL Hemoglobin 14.3 12.2-16.2 g/dL Hematocrit 41.2 36.0-46.0 % Mean Corpuscular Volume 105.2 H 80.0-100.0 fL Mean Corpuscular Hemoglobin 36.4 H 28.0-32.0 pg Mean Corpuscular Hemoglobin Concent 34.6 32.0-36.0 g/dL Red Cell Distribution Width 13.2 11.8-14.3 % Platelet Count 230 140-450 10^3/uL Mean Platelet Volume 8.9 6.9-10.8 fL Neutrophils (%) (Auto) 62.0 37.0-80.0 % Lymphocytes (%) (Auto) 27.3 10.0-50.0 % Monocytes (%) (Auto) 6.1 0.0-12.0 % Eosinophils (%) (Auto) 4.2 0.0-7.0 % Basophils (%) (Auto) 0.4 0.0-2.0 % Neutrophils # (Auto) 4.4 1.6-8.6 10 ^3/uL Lymphocytes # (Auto) 1.9 0.4-5.4 10 ^3/uL Monocytes # (Auto) 0.4 0-1.3 10 ^3/uL Eosinophils # (Auto) 0.3 0-0.8 10 ^3/uL Basophils # (Auto) 0 0-0.2 10 ^3/uL Nucleated Red Blood Cells 0.1 % Sodium Level 139 136-145 mmol/L Potassium Level 4.0 3.5-5.1 mmol/L Chloride Level 105 98-107 mmol/L Carbon Dioxide Level 24 20-31 mmol/L Anion Gap 10 5-15 Blood Urea Nitrogen 15 9-23 mg/dL Creatinine 0.74 0.550-1.02 mg/dL Glomerular Filtration Rate Calc 86 >90 mL/min BUN/Creatinine Ratio 20.3 H 10.0-20.0 Serum Glucose 106 74-106 mg/dL Calcium Level 9.5 8.7-10.4 mg/dL B-Type Natriuretic Peptide 24.87 0-100 pg/mL Current Medications Medications (Trade) Dose Ordered Sig/Dominique Route Start Time Stop Time Status Last Admin Aspirin 324 mg ONCE ONCE PO 04/29/25 21:45 04/29/25 21:46 DC 04/29/25 21:45 Tramadol HCl (Ultram) 50 mg ONCE ONCE PO 04/29/25 21:45 04/29/25 21:46 DC 04/29/25 21:45 Acetaminophen (Tylenol Tablet) 650 mg ONCE ONCE PO 04/29/25 21:45 04/29/25 21:46 DC 04/29/25 21:45 Time of 1ST Reevaluation: 01:08 Reevaluation 1ST: Improved Patient Education/Counseling: Need For Follow Up Family Education/Counseling: Other SEPSIS Sepsis Screen Date sepsis recognized/suspect: Apr 29, 2025 Time Sepsis recognized/suspect: 2050 Recent Procedure: No On Antibiotic Therapy: No Respiratory Rate >20: No Heart Rate >90: Yes Temp<36 C (96.8 F) or >38.3 C: No SBP <90 or MAP <65 mmHG: No New Acute Mental Status Change: No Is the patient on CPAP, BIPAP,: No Physician Orders Chest Xray 1 View (04/29/25 21:33) Vital Signs Q1HR (04/29/25 21:33) Vital Signs Date Time Temp Pulse Resp B/P (MAP) Pulse Ox O2 Delivery O2 Flow Rate FiO2 04/30/25 01:18 Room Air* 0 21 04/30/25 01:15 98.2 75 18 141/79 (99) 97 98.2 04/29/25 22:36 89 16 94 Room Air 04/29/25 22:36 98.2 89 16 119/67 (84) 94 98.2 04/29/25 20:47 97.7 98 26 171/97 98 97.7 04/29/25 20:45 91 Laboratory Tests Test 04/29/25 21:44 White Blood Count 7.1 10^3/uL (4.4-10.8) Medications Medications Dose Ordered Sig/Dominique Route Start Time Stop Time Status Last Admin Dose Admin Acetaminophen 650 mg ONCE ONCE PO 04/29/25 21:45 04/29/25 21:46 DC 04/29/25 21:45 Aspirin 324 mg ONCE ONCE PO 04/29/25 21:45 04/29/25 21:46 DC 04/29/25 21:45 Tramadol HCl 50 mg ONCE ONCE PO 04/29/25 21:45 04/29/25 21:46 DC 04/29/25 21:45 Departure 1 Departure Time of Disposition: 01:04 Impression: Primary Impression: Chest wall pain Disposition: HOME / SELF CARE / HOMELESS Condition: Stable Additional Instructions: ED DISCHARGE INSTRUCTIONS Instructions: Please read all instructions provided in this packet carefully. Although you have been discharged from the Emergency Department, this does not mean that you have a "clean bill of health". No definitive diagnosis for your symptoms has been made today. It is possible that you are in the process of developing a serious illness. This is why you must return to the ED without fail if any new or worsening symptoms (especially if your symptoms include chest pain, trouble breathing, abdominal pain, fever, headache, confusion, trouble seeing, or trouble walking) It is also very important that you see a primary care provider (PCP) within the next 1-3 days to follow up. If you are unable to get an appointment, return to the ED for re-evaluation. CHEST PAIN EDUCATION There are many things that can cause chest pain. Some are not serious and will get better on their own in a few days. But some kinds of chest pain need more testing and treatment. Your doctor may have recommended a follow-up visit in the next few days. If you are not getting better, you may need more tests or fei atment. Even though your doctor has released you, you still need to watch for any problems. The doctor carefully checked you, but sometimes problems can develop later. If you have new symptoms or if your symptoms do not get better, get medical care right away. If you have worse or different chest pain or pressure that lasts more than 5 minutes or you passed out (lost consciousness), call 911 or seek other emergency help right away. A medical visit is only one step in your treatment. Even if you feel better, you still need to do what your doctor recommends, such as going to all suggested follow-up appointments and taking medicines exactly as directed. This will help you recover and help prevent future problems. How can you care for yourself at home? Rest until you feel better. Take your medicine exactly as prescribed. Call your doctor if you think you are having a problem with your medicine. Do not drive after taking a prescription pain medicine. When should you call for help? Call 911 if: You passed out (lost consciousness). You have severe difficulty breathing. You have symptoms of a heart attack. These may include: Chest pain or pressure, or a strange feeling in your chest. Sweating. Shortness of breath. Nausea or vomiting. Pain, pressure, or a strange feeling in your back, neck, jaw, or upper belly or in one or both shoulders or arms. Lightheadedness or sudden weakness. A fast or irregular heartbeat. After you call 911, the bus operator may tell you to chew 1 adult-strength or 2 to 4 low-dose aspirin. Wait for an ambulance. Do not try to drive yourself. Call your doctor now or seek immediate medical care if: You have any trouble breathing. You have new or different chest pain. You are dizzy or lightheaded, or you feel like you may faint. Watch closely for changes in your health, and be sure to contact your doctor if you do not get better as expected. Current as of: April 16, 2024 Author: [employer]? e-Prescriptions Acetaminophen (Acetaminophen Er) 650 Mg Tab 650 MG PO TIDPRN PRN for 5 Days, #15 TAB Prov: YOAV FLORES MD 04/30/25 Comments MDM: 69-year-old female presents with reproducible left chest wall tenderness after bout of coughing. EKG negative for signs of ischemia. High sensitivity troponin negative. CXR shows no acute process. Presentation not suggestive of acute coronary syndrome, pulmonary embolism or aortic dissection. Patient improved at time of discharge. Patient has not been hypoxic, in respiratory distress or dyspneic during the ED observation. Patient able to ambulate without difficulty. Patient felt stable for discharge to follow up with PCP promptly. Patient advised to return to the ED with any new, worsening or concerning symptoms or inability to follow up with PCP. -------- I reviewed the following notes from the pt's past medical encounters: N/A The following tests were ordered, and results were reviewed by me: (See diagnostic results section) The following test were independently interpreted by me: EKG Additional information was gathered from interviewing the following independent historians: N/A I reviewed and agreed with the following test results read by other providers: Chest x-ray I discussed treatments and results with patient Decision regarding hospitalization or escalation of hospital level of care: Risks and benefits of admission for further treatment of patient's condition was considered however due to patient's stable condition patient will be discharged to follow up closely or return to care for worsening of condition or inability to follow up. Critical Care Note Critical Care Time?: No Stability Stability form required: No I personally scribed for YOAV FLORES MD ([email or web address]) on 04/30/25 at 00:13. Electronically submitted by Lang Badillo ([email or web address]). YOAV FLORES MD Apr 30, 2025 00:13
[2025-04-30] MEDS ORDERED: ACET650T12 PO (01:09)
[2025-04-30 01:15] VITALS: BP 141/79; PULSE 75; RESP 18; TEMP 98.2; O2SAT 97
== END 2025-04-30 01:21 | disposition home or self-care (01) ==
LOC: EDBD 20:35 → ER 20:35
DX: R07.89 Other chest pain (principal); Z79.899 Other long term (current) drug therapy; Z88.0 Allergy status to penicillin; Z79.82 Long term (current) use of aspirin
CPT/HCPCS: 36415; 71045; 80048; 83880; 84484; 85025; 93005